=== PATIENT | female | born 1980 | race African-American/Black ===

== ENCOUNTER 2019-02-07 20:00 | Inpatient (IN) | payer OTHER ==
[~2019-02-07] VITALS: Ht 172.7 cm; Wt 102.1 kg
[2019-02-07 20:01] VITALS: BP 106/52
[2019-02-07 21:04] LABS: HEMATOCRIT 28.2 % (37.0-47.0); HEMOGLOBIN 9.1 gm/dL (12.0-15.0); MCH 26.6 pg (26.0-34.0); MCHC 32.3 g/dL (28.0-37.0); MCV 82.4 fL (80.0-100.0); PLATELET COUNT 395 thou/uL (150-400); RBC 3.43 mil/uL (4.20-5.00); RDW 17.5 % (10.5-14.5); WBC 11.2 thou/uL (4.0-11.0)
[2019-02-07 21:12] LABS: CALCIUM 8.7 mg/dL (8.5-10.1); CREATININE 1.1 mg/dL (0.6-1.0); POTASSIUM 3.9 mmol/L (3.5-5.1)
[2019-02-07 21:48] LABS: ABSOLUTE NEUTROPHILS 6.5 thou/uL (1.4-8.2)
[2019-02-07 21:49] LABS: ANISOCYTOSIS 1+; PLATELET ESTIMATE NORMAL
[2019-02-07 23:27] VITALS: BP 135/67
[2019-02-08 00:07] VITALS: BP 134/71
[2019-02-08] MEDS ORDERED: SINGULAIR 10 MG10 M1 PO (00:32)
[2019-02-08] MEDS ORDERED: VENTOLIN HFA 1818 GM INH (00:33)
[2019-02-08 00:55] VITALS: BP 123/70
[2019-02-08 03:00] VITALS: BP 112/68
--- NOTE | 2019-02-08 03:37 | NUR ---
PATIENTS CARE WAS ASSUMED AFTER ED TRANSFERED HER TO THE FLOOR IN FAIR CONDITION. THIS PATIENT CAME TO THE FLOOR WITH ALL HER CLOTHES ON. THIS PATIENT IS A PE COUCH AND FELL AND FRACTURED HER LEG. PATIENT IS NOW NPO SINCE MIDNIGHT SHE WILL HAVE SURGERY IN THE MORNING. HOURLY ROUNDING WAS DONE. THE BED IS IN A LOW AND LOCKED POSITION.
[2019-02-08 05:33] LABS: HEMATOCRIT 27.8 % (37.0-47.0); MCH 26.8 pg (26.0-34.0); MCHC 32.4 g/dL (28.0-37.0); MCV 82.7 fL (80.0-100.0); RBC 3.36 mil/uL (4.20-5.00); RDW 17.3 % (10.5-14.5); WBC 11.5 thou/uL (4.0-11.0)
[2019-02-08 05:39] LABS: CALCIUM 8.6 mg/dL (8.5-10.1); CREATININE 1.1 mg/dL (0.6-1.0); POTASSIUM 4.2 mmol/L (3.5-5.1)
[2019-02-08 08:57] VITALS: BP 108/60
[2019-02-08 11:01] LABS: MAGNESIUM 2.2 mg/dL (1.8-2.4)
[2019-02-08 13:19] VITALS: BP 126/70
--- NOTE | 2019-02-08 14:21 | NUR ---
ASSESSMENT-PT LIVES IN AN APT. PRIOR SHE WAS INDEPENDENT OF ADLS, AMBULATION AND WAS WORKING IN A DRS OFFICE. PT'S FRIEND AND MOTHER AT THE BEDSIDE. PLAN IS FOR PT TO HAVE SURGERY TOMORROW. PT HAS NO DME AND HAS NOT HAD ANY HH SERVICES IN THE PAST. FOLLOWING TO ASSIST WITH DC PLANNING.
[2019-02-08 19:06] VITALS: BP 120/75
[2019-02-08 20:05] LABS: URINE BILIRUBIN NEGATIVE (Negative); URINE BLOOD NEGATIVE (Negative); URINE CLARITY CLEAR; URINE COLOR YELLOW; URINE GLUCOSE-RANDOM* NEGATIVE (Negative); URINE KETONES NEGATIVE (Negative); URINE LEUKOCYTES-REFLEX TRACE (Negative); URINE NITRITE-REFLEX NEGATIVE (Negative); URINE PROTEIN (DIPSTICK) TRACE (Negative); URINE SPECIFIC GRAVITY 1.025 (1.005-1.035)
--- NOTE | 2019-02-09 01:15 | NUR ---
Assumed care of pt at 1900. Pt alert and oriented x4. Complaints for severe pain on right lower extremity. Not yet due for morphine IV. Broadcast Journalist on duty notified and onetime order for norco obtained. NPO after midnight. Will have surgery in the am. Immobilizer in place on right lower extremity. IVF infusing. Call light within reach. Will continue to monitor.
[2019-02-09 04:29] VITALS: BP 128/63
[2019-02-09 05:09] LABS: HEMATOCRIT 25.9 % (37.0-47.0); HEMOGLOBIN 8.4 gm/dL (12.0-15.0); MCH 26.9 pg (26.0-34.0); MCHC 32.5 g/dL (28.0-37.0); MCV 82.6 fL (80.0-100.0); PLATELET COUNT 350 thou/uL (150-400); RBC 3.14 mil/uL (4.20-5.00); RDW 17.1 % (10.5-14.5); WBC 12.1 thou/uL (4.0-11.0)
[2019-02-09 05:17] LABS: PROTIME 10.7 Seconds (9.3-11.4)
[2019-02-09 05:22] LABS: CALCIUM 8.7 mg/dL (8.5-10.1); CREATININE 0.9 mg/dL (0.6-1.0); MAGNESIUM 2.1 mg/dL (1.8-2.4); POTASSIUM 3.8 mmol/L (3.5-5.1)
[2019-02-09 06:18] LABS: ABSOLUTE NEUTROPHILS 6.2 thou/uL (1.4-8.2)
[2019-02-09 06:19] LABS: ANISOCYTOSIS 1+; PLATELET ESTIMATE NORMAL; POLYCHROMASIA 1+
[2019-02-09 07:20] VITALS: BP 124/64
--- NOTE | 2019-02-09 11:41 | HC ---
[facility] [place] [address] CONSULTATION Name: CASTILLO LE Room #: 418-P ADM IN M.R.#: [id number] Admission: 02/07/19 ������������������ Attend Phys: Jd Sewell MD Discharge: ������������������ Date of : 76 Report #: [id number] THIS REPORT FOR: //name// CC: Bebeto Sewell DATE OF SERVICE: 02/08/2019 CHIEF COMPLAINT: Left tibial plateau fracture. 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 She was running fracture site yesterday and stumbled awkwardly twisting the left knee. She had immediate popping sensation, followed by pain and inability to bear weight. She came to [facility] where x-rays confirm a badly comminuted and displaced left tibial plateau fracture. She has no other injuries. She states she has no other significant medical problems and is generally fit and healthy. PHYSICAL EXAMINATION: GENERAL: At the time of my evaluation, she is alert and oriented and in moderate discomfort due to left knee pain. She seems to be in no distress. LUNGS: Clear. CARDIOVASCULAR: Reveals a regular rate and rhythm. MUSCULOSKELETAL: The upper extremities reveal good range of motion without discomfort. The neck and back reveal normal contour and alignment, satisfactory range of motion without discomfort. The right lower extremity reveals good movement at the hip, knee and ankle without discomfort. The left lower extremity is quite uncomfortable of her knee, which is protected with a knee immobilizer brace. She has good movement of the foot and ankle with good strength in both dorsiflexion and plantar flexion. Vascular status appears to be normal. X-rays of the left knee reveal a badly comminuted fracture with a vertical fracture line extending through the mid tibia and extending medially. The medial one-half of the tibia is depressed about 1-2 inches. The lateral aspect seems to be intact. IMPRESSION: I have discussed this at length with the patient noting this is a rather severely comminuted and badly displaced fracture of the left tibial plateau involving significant deformity at the articular surfaces. I think surgical repair is most appropriate. We will press ahead either later today or tomorrow pending or scheduling. At the time of this dictation, [place] [address] CONSULTATION Name: CASTILLO LE Room #: 418-P [facility] IN M.R.#: [id number] Admission: 02/07/19 ������������������ Attend Phys: Jd Sewell MD Discharge: ������������������ Date of : 76 Report #: [id number] probably proceed tomorrow morning if OR availability is possible. The patient understands and wishes to proceed with surgery. ��������������������������������������������� <ELECTRONICALLY SIGNED> ���������������������������������������� By: Vishal Cristina MD ��������������������������������������������� 02/09/19 1141 [id number] Vishal Cristina MD /nt
--- NOTE | 2019-02-09 11:56 | NUR ---
ASSUMED CARE AT 0700, SHIFT ASSESSMENT DONE, VSS, NPO SINCE LAST NIGHT. REPORTED PAIN, PRN PAIN MED GIVEN. LEFT FOR SURGERY AT 1000. WILL CONTINUE TO ASSESS AND ASSIST WITH ADLs NEEDED.
[2019-02-09 11:59] VITALS: BP 120/73
[2019-02-09 16:00] VITALS: BP 132/61
--- NOTE | 2019-02-10 04:17 | NUR ---
ASSUMED PT CARE 1899. PT ALERT AND ORIENTED. REASSESSMENT COMPLETE. IV DRESSING C/D/I, NO SIGNS OF INFITLRATION. PT DENIES N/V. PT REPORTS PAIN, SEE EMAR. IMMOBILIZER IN PLACE TO LLE. PT CALL LIGHT WITHIN REACH, WILL CONTINUE POC UNTIL EOS.
[2019-02-10 04:57] LABS: HEMATOCRIT 24.4 % (37.0-47.0); HEMOGLOBIN 7.9 gm/dL (12.0-15.0)
[2019-02-10 05:38] VITALS: BP 113/63
--- NOTE | 2019-02-10 07:19 | O ---
[facility] [place] [address] OPERATIVE REPORT Name: CASTILLO LE Room #: 418-P ADM IN M.R.#: [id number] Admission: 02/07/19 ������������������ Attend Phys: Jd Sewell MD Discharge: ������������������ Date of : 78 Report #: [id number] THIS REPORT FOR: //name// CC: Bebeto Sewell DATE OF SERVICE: 02/09/2019 PREOPERATIVE DIAGNOSIS: Complex comminuted left tibial plateau fracture. POSTOPERATIVE DIAGNOSIS: Complex comminuted left tibial plateau fracture. PROCEDURE: Open reduction and internal fixation of left tibial plateau fracture. SURGEON: Vishal Cristina MD. INDICATIONS: This 38-year-old female fell awkwardly, twisting the left knee resulting in a severely comminuted and displaced fracture involving the proximal tibia. This involves a fracture in the inner spinous region extending distally and medially with several centimeters of depression involving the entire mid and medial aspect of the tibia. There is also some comminution extending posteriorly. The more lateral portion of the tibia remains intact and is well aligned with the fibula. The lateral cortex remains intact. We have discussed treatment options and elected to go ahead with surgical repair with reduction and medial buttress fixation plating. DESCRIPTION OF PROCEDURE: The patient was taken to the operating room where she was placed under general anesthesia. A block was also performed. The left knee and leg were meticulously prepped and draped. A thigh tourniquet was applied and inflated to 300 mmHg. An anterior medial skin incision was made extending from the left knee joint distally along the anterior medial tibia. This was extended to subcutaneous tissues to expose the bone and periosteum. There was a large displaced fracture extending along the anterior medial cortex. This was reduced essentially anatomically and held temporarily with a bone clamp. This fragment, which involved essentially the entire anterior medial tibia was also elevated bring this more proximally and in alignment with the lateral tibia. This resulted in essentially anatomic appearance of the joint surface when viewed on the AP view. The lateral view reveals some comminution and some posterior displacement still, however, overall alignment seems to be acceptable and I did not feel I could improve the reduction without undue soft tissue dissection and possible further injury. The reduction was held temporarily with clamps and then an 8-hole medial tibial buttress plate was applied. Locking and nonlocking screws were placed with 3 screws in the most proximal holes, which seemed to align and compress the joint surface defect nicely. More distally, there were six additional screws, which have reasonably good purchase in the [facility] [address] [place] [address] OPERATIVE REPORT Name: CASTILLO LE Room #: 418-P [facility] IN .R.#: [id number] Admission: 02/07/19 ������������������ Attend Phys: Jd Sewell MD Discharge: ������������������ Date of : 78 Report #: [id number] metaphyseal and upper diaphyseal bone. This results in essentially anatomic alignment in the AP view. The lateral view still reveals some posterior displacement in the metaphyseal region, but the joint surface appears to be anatomic. I did not feel further dissection or disruption of this fixation would be helpful and elected to accept this reduction. The tourniquet was then deflated. Good hemostasis was confirmed. A small arthrotomy in the joint had been made to visualize the joint surface confirming that I was back to essentially anatomic position. A moderate joint hematoma had been evacuated early in the case. At this point, a drain was placed lying along the plate and then the tip of the drain left in the joint. This was carefully protected as the wound was then closed in layers using 0 Monocryl for multiple layers bringing the subcutaneous tissues together nicely. The skin was then closed with skin kristopher. The drain was tested and found to be mobile and sliding slightly without any evidence of tethering. The skin was closed with skin kristopher. A sterile dressing was applied. The knee immobilizer brace was then reapplied holding the knee in neutral position. The patient was awakened and returned to recovery room in good condition. ��������������������������������������������� <ELECTRONICALLY SIGNED> ���������������������������������������� By: Vishal Cristina MD ��������������������������������������������� 02/10/19 0719 1304 [id number] Vishal Cristina MD /nt
[2019-02-10 07:35] VITALS: BP 116/67
--- NOTE | 2019-02-10 16:40 | NUR ---
ASSUMED CARE OF PT AT 0700. ASSESSMENT COMPLETED, CHARTED. A&O,X4. C/O LEFT LEG PAIN, PAIN MEDS GIVEN ORDERED. LEFT LEG DRESSED IN SURGICAL DRESSING, KELTON WRAP, AND IMMOBILIZER. HEMOVAC DRAIN REMOVED TODAY ORDERED, 50 ML SANGINOUS DRAINAGE NOTED. +2/+2 PULSES. LEFT LEG EDEMA NOTED. PT WORKED WITH P.T. TODAY, UP IN CHAIR AND WALKING WITH X1 ASSIST AND WALKER. WILL CONTINUE TO MONITOR UNTIL EOS.
[2019-02-10 16:57] VITALS: BP 112/54
[2019-02-10 19:15] VITALS: BP 114/58
[2019-02-10 21:45] VITALS: BP 123/68
--- NOTE | 2019-02-11 04:05 | NUR ---
PATIENT IS ALERT AND ORIENTED. PATIENT IS UP TIMES ONE TO TWO WITH WALKER AND GAIT BELT. PATIENT IS TOE TOUCH ON LT LEG IMMOBILIZER IN PLACE. PATIENT USES BSC. PATIENTS LBM WAS THE . PATIENT WAS GIVEN MIRALAX. PATIENT IS ROOM AIR. PATIENTS PAIN HAS BEEN STABLE. PATIENT IS SLEEPING IN CHAIR. PATIENT IS RESTING COMFORTABLY IN BED. WCM. PATIENT IS PROGRESSING TO GOALS.
[2019-02-11 05:05] VITALS: BP 110/56
[2019-02-11 05:30] LABS: HEMATOCRIT 22.3 % (37.0-47.0); HEMOGLOBIN 7.4 gm/dL (12.0-15.0); MCH 27.3 pg (26.0-34.0); MCHC 33.2 g/dL (28.0-37.0); MCV 82.4 fL (80.0-100.0); RBC 2.71 mil/uL (4.20-5.00); RDW 17.1 % (10.5-14.5); WBC 10.6 thou/uL (4.0-11.0)
[2019-02-11 05:53] LABS: CALCIUM 8.2 mg/dL (8.5-10.1); CREATININE 0.9 mg/dL (0.6-1.0); POTASSIUM 3.7 mmol/L (3.5-5.1)
[2019-02-11 07:10] VITALS: BP 101/57
[2019-02-11 16:00] VITALS: BP 116/55
--- NOTE | 2019-02-11 19:41 | NUR ---
ASSUMED CARE OF PT AT 0700. ASSESSMENT COMPLETED. A&O,X4. C/O LEFT LEG PAIN POST OP, PAIN MEDS GIVEN ORDERED. LEFT IMMOBILIZER IN PLACE. INCREASED SWELLING IN LEFT FOOT NOTED, ICE AND ELEVATION PROMOTED. NO BM NOTED SINCE SURGERY, MIRALAX GIVEN. FAMILY AT BEDSIDE. NO OTHER CHANGE IN STATUS.
[2019-02-12 03:50] VITALS: BP 111/64
--- NOTE | 2019-02-12 04:46 | NUR ---
ASSUMED PT CARE 1899. PT ALERT AND ORIENTED. REASSESMENT COMPLETE. VSS. PT DENIES N/V, REPORTS PAIN, SEE EMAR. SWELLING TO RLE- ICE APPLIED. IV DRESSING C/DI, NO SIGNS OF INFILTRATION. CALL LIGHT WITHIN REACH. FAMILY AT BEDSIDE. IMMOBILIZER TO LLE IN PLACE. WILL CONTINUE POC UNTIL EOS.
[2019-02-12 08:19] VITALS: BP 116/56
--- NOTE | 2019-02-12 14:48 | NUR ---
ASSUMED CARE OF PT AT 0700. ASSESSMENT COMPLETED. A&0,X4. C/O INCREASED LEG PAIN AND SWELLING, PHYSICIAN NOTIFIED. NEW PAIN MED ORDERS TODAY, PAIN MEDS GIVEN ORDERED. LEFT IMMOBILIZER IN PLACE, UP WITH ASSIST AND WALKER. NO BM SINCE SURGERY, SENNA AND MIRALAX GIVEN. MOTHER AT BEDSIDE. NO OTHER CHANGE IN STATUS. POSSIBLE D/C TOMORROW.
[2019-02-12 15:32] VITALS: BP 109/48
[2019-02-12 19:38] VITALS: BP 125/57
[2019-02-13 05:15] VITALS: BP 125/65
--- NOTE | 2019-02-13 05:23 | NUR ---
ASSUMED PT CARE 1899. PT ALERT AND ORIENTED. REASSESSMENT COMPLETE. VSS. PT DENIES N/V. REPORTS PAIN, SEE EMAR. MOTHER AT BEDSIDE. IV DRESSING C/D/I, NO SIGNS OF INFILTRATION. CALL LIGHT WITHIN REACH. WILL CONTINUE POC UNTIL EOS.
[2019-02-13 05:50] LABS: HEMOGLOBIN 7.5 gm/dL (12.0-15.0); MCH 26.8 pg (26.0-34.0); MCHC 32.7 g/dL (28.0-37.0); MCV 81.9 fL (80.0-100.0); RBC 2.81 mil/uL (4.20-5.00); RDW 17.2 % (10.5-14.5); WBC 10.4 thou/uL (4.0-11.0)
[2019-02-13 08:01] VITALS: BP 111/65
--- NOTE | 2019-02-13 10:57 | NUR ---
PT A&OX4, IV INTACT IN L AC. LLE WITH IMMOBILIZER, AMBULATES WITH ASSIST X1 AND WALKER TO BSC. TOLERATING PO WELL. WILL CONT POC.
--- NOTE | 2019-02-13 14:18 | NUR ---
FAXED REFERRAL TO [facility] WITH BECKY IN ADM, TO REVIEW. DCP TO FOLLOW.
--- NOTE | 2019-02-13 14:40 | NUR ---
S/W PT, HER MOM AND ANOTHER FAMILY MEMEBER AND THEY ARE INTERESTED IN RHOP. NOTIFIED DC POULTRY CUTTER. EXPLAINED PROCESS TO [facility] AND ASKED THEM TO LOOK AT SNF LIST TOO IN CASE ACUTE REHAB LEVEL OF CARE IS NOT APPROVED. THEY HAVE SNF LIST TO REVIEW.
[2019-02-13 17:12] VITALS: BP 120/57
[2019-02-13 19:01] VITALS: BP 112/63
[2019-02-14 03:56] VITALS: BP 93/51
--- NOTE | 2019-02-14 04:26 | NUR ---
ASSUMED PT CARE 1899. PT ALERT AND ORIENTED. REASSESSMENT COMPLETE. VSS. IV DRESSING C/D/I, NO SIGNS OF INFITLRATION. SWELLING TO LLE. ICE PACKS PROVIDED. PT REPORTS PAIN, SEE EMAR. PT DENIES N/V. PT CALLLIGHT WITHIN REACH, WILL CONTINUE POC UNTIL EOS.
[2019-02-14 09:08] VITALS: BP 92/40
--- NOTE | 2019-02-14 11:35 | NUR ---
Assess for length of stay. Left knee fracture s/p surgical intervention. Discharge planning in process. Tolerating meals. Corrected BMI is 35. Low nutrition risk
--- NOTE | 2019-02-14 12:25 | NUR ---
Following for d/c planning needs. Checked with [facility] liaison. She said they are still waiting for insurance authorization.
--- NOTE | 2019-02-14 15:25 | NUR ---
on-going assessment: CECILE WAS NOTIFIED BY THAT PER REHAB [facility] IS BEING DENIED BY INSURANCE FOR ACUTE REHAB. A PEER TO PEER CAN BE COMPLETED IF REQUESTED BY CALLING [phone] REF#[id number]. CECILE NOTIFIED ATTENDING AND SPOKE WITH PATIENT. SHE WOULD REALLY LIKE ATTENDING TO DO PEER TO PEER SHE REALLY WANTS ACUTE REHAB [facility] THEN HAVING TO GO TO A SNF. CECILE NOTIFIED ATTENDING WHO IS AGREEABLE TO COMPLETE THE PEER TO PEER. CECILE CALLED [phone] AND SPOKE WITH BART TO SCHEDULE THE PEER TO PEER. SHE STATES THEIR CAFE LEAD WILL CALL DR. MUSE WITHIN 24 HOURS TO COMPLETE THE PEER TO PEER (BY [phone]). CECILE NOTIFIED PATIENT.
[2019-02-14 15:50] VITALS: BP 106/54
--- NOTE | 2019-02-14 19:39 | NUR ---
ASSUMED CARE AT 0700, SHIFT ASSESSMENT DONE, MEDS GIVEN, VSS. REPORTED PAIN, PRN PAIN MEDS GIVEN PER eMAR. WORKED WITH PHYSICAL THERAPHY, SEE NOTES. DENIES ANY OTHER CONCERNS AT THIS TIME. IV FLUIIDS HAVE BEEN DISCONTINUED. WILL CONTINUE TO ASSESS AND ASSIST WITH ADLs NEEDED.
[2019-02-14 20:00] VITALS: BP 130/68
[2019-02-15 04:30] VITALS: BP 103/48
--- NOTE | 2019-02-15 05:08 | NUR ---
PT CONTINUE TO REQUEST PAIN MEDICINE WHEN IT IS TIME, EDUCATED TO TRY TO LENGHTEN THE INTERVAL BUT SHE SAYS PAIN STARTS RIGHT ON THE DOT WHEN IT IS DUE. UP WITH ASSIST TO THE BEDSIDE COMMODE, ON ROOM AIR LEFT LEG WITH KELTON WRAP AND VELCRO IMMOBILIZER, NO SOB NOTED, VOIDING, NO BM NOTED, ICE PACK NEEDED TO LEFT LEG, LEFT LEG SWOLLEN BUT NOT PITTING, USING CALL LIGHT APPROPRIATELY, GOOD APPETITE, SEVERAL SNACKS GIVEN LAST NOC, HOURLY ROUNDING, MONITORED.
[2019-02-15 08:50] VITALS: BP 116/58
--- NOTE | 2019-02-15 10:34 | NUR ---
Physician said that insurance upheld denial. Spoke with pt and her mother. They were given choices, and want pt to go to [facility]. Messaged media services coordinator at facility and asked conservation planner to fax referral. Will await return call re: bed availability and acceptance.
--- NOTE | 2019-02-15 11:48 | NUR ---
FAXED REFERRAL TO [facility] SPOKE WITH FRANCOISE IN ADM. SHE RECEIVED REFERRAL AND WILL REVIEW. DCP TO FOLLOW.
--- NOTE | 2019-02-15 12:40 | NUR ---
ASSUMED CARE AT 0700, SHIFT ASSESSMENT DONE, VSS. REPORTED PAIN, PRN PAIN MEDS GIVEN, SEE eMAR. WORKED WITH PHYSICAL THERAPHY. SITTING UP IN THE CHAIR THIS AFTERNOON. WILL CONTINUE TO ASSESS AND ASSIST WITH ADLs NEEDED.
[2019-02-15] MEDS ORDERED: NORCO 10-325 T1 EACH PO (15:17)
--- NOTE | 2019-02-15 16:01 | NUR ---
PT. DISCHARGING TODAY TO [facility] FAXED DC ORDERS/SUMMARY TO FACILITY SPOKE WITH EDUARDO IN ADM. SHE RECEIVED DC ORDERS AND ARRANGED TRANSPORT VIA [facility] FOR 1630. FAMILY NOTIFIED AT BEDSIDE AND UNIT NOTIFIED OF TRANSPORT TIME AND CHART COPY PER US. RN TO CALL REPORT TO [phone].
--- NOTE | 2019-02-15 17:27 | NUR ---
DISCHARGE ORDER RECEIVED. REPORT CALLED TO CHELLE OVER THE FACILITY. PERIPHEARL IV WAS TAKEN OUT. LEFT WITH TRANSPORTATION AT 1700.
== END 2019-02-15 18:37 | DRG 493 ==
LOC: ER 20:00 → EROBS 22:54 → 4E 22:54
PROVIDERS: Emergency Medicine; Hospitalist; Nurse Practitioner Family; Orthopaedic Surgery; ADMIT Internal Medicine
PROC: 0QSH04Z Reposition Left Tibia with Internal Fixation Device, Open Approach (ICD-10-PCS; principal; 2019-02-09)
DX: S82.142A Displaced bicondylar fracture of left tibia, initial encounter for closed fracture (principal); D62 Acute posthemorrhagic anemia; W18.30XA Fall on same level, unspecified, initial encounter; Y93.02 Activity, running; J45.909 Unspecified asthma, uncomplicated; D72.829 Elevated white blood cell count, unspecified; Y92.410 Unspecified street and highway as the place of occurrence of the external cause; Y99.8 Other external cause status; Z88.0 Allergy status to penicillin; Z88.1 Allergy status to other antibiotic agents; Z80.9 Family history of malignant neoplasm, unspecified
CPT/HCPCS: 10084; 50010; 50101; 50341; 50386; 51132; 51412; 55430; 56667; 57091; 57180; 62110; 62900; 64043; 65060; 70005

== ENCOUNTER 2019-03-02 15:19 | Inpatient (IN) | payer OTHER ==
[~2019-03-02] VITALS: Ht 172.7 cm; Wt 95.3 kg
[2019-03-02 15:19] VITALS: BP 112/61
[~2019-03-02 15:19] MED LIST: NORCO 10-325 T1 EACH PO; SINGULAIR 10 MG10 M1 PO; VENTOLIN HFA 1818 GM INH
[2019-03-02] MEDS ORDERED: APAP650 PO (15:34)
[2019-03-02] MEDS ORDERED: CYCLOBENZAPRINE5 MG PO (15:35)
[2019-03-02] MEDS ORDERED: BISACODYL SUPP10 MG RECTAL (15:36)
[2019-03-02] MEDS ORDERED: ERGOCAL2500 UNIT PO (15:37)
[2019-03-02] MEDS ORDERED: IRON325 PO (15:38)
[2019-03-02] MEDS ORDERED: GABAPENTIN 100100 MG PO (15:39)
[2019-03-02] MEDS ORDERED: GLYCOLAX119 GM PO (15:40)
[2019-03-02] MEDS ORDERED: LIDOCAINE PAIN1 EACH TOP (15:43)
[2019-03-02] MEDS ORDERED: OXYCONTIN10 M1 PO (15:44)
[2019-03-02] MEDS ORDERED: PERCOCET PO (15:44)
[2019-03-02] MEDS ORDERED: SENNA8.6 MG PO (15:45)
[2019-03-02] MEDS ORDERED: VITAMINC500 PO (15:45)
[2019-03-02 17:12] LABS: MCH 25.9 pg (26.0-34.0); PLATELET COUNT 419 thou/uL (150-400); RBC 3.08 mil/uL (4.20-5.00); RDW 18.2 % (10.5-14.5); WBC 10.5 thou/uL (4.0-11.0)
[2019-03-02 17:17] LABS: CALCIUM 9.5 mg/dL (8.5-10.1); CREATININE 1.1 mg/dL (0.6-1.0); POTASSIUM 3.8 mmol/L (3.5-5.1)
[2019-03-02 17:51] LABS: ABSOLUTE NEUTROPHILS 5.9 thou/uL (1.4-8.2)
[2019-03-02 17:52] LABS: ANISOCYTOSIS 2+; TARGET CELLS OCCASIONAL
[2019-03-02 18:14] LABS: APTT 30.6 Seconds (24.5-32.8); PROTIME 10.9 Seconds (9.3-11.4)
[2019-03-02] MEDS ORDERED: VENTOLIN HFA 1818 GM INH (19:01)
[2019-03-02] MEDS ORDERED: SINGULAIR 10 MG10 M1 PO (19:03)
[2019-03-02 19:48] VITALS: BP 116/71
[2019-03-02 20:30] VITALS: BP 117/62
[2019-03-02 20:50] VITALS: BP 102/56
[2019-03-02] MEDS ORDERED: VIT C-ROSE HIP500 MG PO (22:00)
[2019-03-02 23:27] VITALS: BP 120/62
[2019-03-03 04:00] VITALS: BP 106/61
[2019-03-03 05:12] LABS: HEMATOCRIT 22.4 % (37.0-47.0); HEMOGLOBIN 7.3 gm/dL (12.0-15.0); MCH 26.3 pg (26.0-34.0); MCHC 32.5 g/dL (28.0-37.0); MCV 80.9 fL (80.0-100.0); RBC 2.77 mil/uL (4.20-5.00); RDW 17.4 % (10.5-14.5); WBC 9.7 thou/uL (4.0-11.0)
[2019-03-03 05:20] LABS: CREATININE 0.9 mg/dL (0.6-1.0); POTASSIUM 4.1 mmol/L (3.5-5.1)
--- NOTE | 2019-03-03 06:31 | NUR ---
CELINA SAID OKAY TO HOLD HEPARIN BOLUS DUE TO APTT BEING TWO POINTS OFF TO PREVENT OVER SHOOTING NEXT APTT. FELECIA
--- NOTE | 2019-03-03 06:56 | NUR ---
PATIENT IS ALERT AND ORIENTED. PATIENTS PAIN IS CONTROLLED WITH MEDICATION. PATIENT IS ON HEPARIN DRIP. PATIENT IS ROOM AIR. PATIENT IS SINUS TACH ON TELE. PATIENT LBM IS THE 16TH. NEXT APTT IS 12 5-17-19. PATIENT IS NON WEIGHT BEARING ON LT FOOT FOR 11 WEEKS. PATIENT HAS BRACE TO LT LEG. INCISION WELL APPROXIMATED WITH STERI STRIPS. PATIENT IS RESTING COMFORTABLY IN BED. WCM.
[2019-03-03 08:00] VITALS: BP 103/61
[2019-03-03 08:51] LABS: % SATURATION 4 % (20-39); IRON 12 ug/dL (50-170); TIBC 294 ug/dL (250-450)
[2019-03-03 09:19] LABS: FOLIC ACID 16.9 ng/mL (8.6-58.9)
--- NOTE | 2019-03-03 10:29 | NUR ---
INITIAL ASSESSMENT: Pt evaluated for d/c planning needs. Reviewed chart and spoke with nurse, pt and family members at bedside. Pt is alert and oriented. Pt was hospitalized at [facility] and went to [facility] on February 15 for SNF. Pt was non-weight bearing on left leg. Pt said she is hopeful she will be able to return to [facility] on d/c from hospital. Spoke with adoption coordinator at facility and asked inventory control planner to fax referral. Prior to previous admission, pt was living in apartment with children and was independent with ADL's and employed outside the home. Will remain available to assist as needed.
--- NOTE | 2019-03-03 10:48 | NUR ---
DISCHARGE PLANNING. ANTICIPATED WEEKEND DISCHARGE. PATIENT ADMITTED TO HOSPITAL FROM [facility] UNIT. PATIENT REQUESTING TO RETURN TO [facility] AT DISCHARGE. PATIENT REFERRAL FAXED TO [facility]. CALL PLACED TO EDUARDO TO NOTIFY OF REFERRAL AND POSSIBLE WEEKEND DISCHARGE. PT AND OT TO SEE PATIENT TODAY. WILL FORWARD PT AND OT ASSESSMENTS TO EDUARDO ONCE AVAILABLE FOR INSURANCE AUTH PROCESS. FOLLOWING TO ASSIST WITH DISCHARGE.
--- NOTE | 2019-03-03 11:32 | NUR ---
care of pt assumed this am @ ~0700. pt noted to be in bed w/ x2 family members at bs. pt completed breakfast w/o n/v/d. pt on a heparin gtt at this time, new lab draw at noon to reassess aptt. pt co pain 2-03/27 to rt knee, noted binder undone dt dr. uribe at w/ dr. go. pt request binder be left open for a few hours for comfort and relief. noted previous sugery incision to lt knee x2 w/ steri strips intact, clean and dry w/ edges approximated well. pt noted to be walking in the hallway w/ walker and pt, asked if she need pain medication, she denied need at this time, but that she would contact me if needed in future. pt did not want to sit in chair post ambulation w/ pt, but rather preferred her bed.
[2019-03-03 12:07] VITALS: BP 106/64
[2019-03-03 16:23] VITALS: BP 112/60
[2019-03-03 20:57] VITALS: BP 104/62
[2019-03-04 04:37] VITALS: BP 94/53
[2019-03-04 06:34] LABS: HEMATOCRIT 22.4 % (37.0-47.0); HEMOGLOBIN 7.2 gm/dL (12.0-15.0); MCH 26.1 pg (26.0-34.0); MCHC 32.2 g/dL (28.0-37.0); MCV 80.9 fL (80.0-100.0); RBC 2.77 mil/uL (4.20-5.00); RDW 17.8 % (10.5-14.5); WBC 8.3 thou/uL (4.0-11.0)
[2019-03-04 06:44] LABS: CALCIUM 9.3 mg/dL (8.5-10.1); CREATININE 0.8 mg/dL (0.6-1.0); MAGNESIUM 2.4 mg/dL (1.8-2.4); POTASSIUM 4.1 mmol/L (3.5-5.1)
[2019-03-04 07:51] VITALS: BP 103/57
--- NOTE | 2019-03-04 08:21 | NUR ---
PT MAKING POOR PROGRESS TOWARDS GOALS. RATING LEFT KNEE PAIN AT 6-8/10 THROUGHOUT THE NIGHT. LORTAB AND MORPHINE GIVEN PER ORDERS. PAIN GOAL SET FOR 5/10. HEPARIN GTT PER ORDERS.
--- NOTE | 2019-03-04 09:11 | HC ---
[facility] [place] [address] CONSULTATION Name: CASTILLO LE Room #: 364-P ADM IN M.R.#: [id number] Admission: 03/02/19 ������������������ Attend Phys: Ludy Villarreal MD Discharge: ������������������ Date of : 76 Report #: [id number] THIS REPORT FOR: //name// CC: Vishal Villarreal REASON FOR CONSULTATION: Left DVT and pulmonary emboli, thought to be provoked. 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 The surgery was for a complex comminuted left tibial plateau fracture. The patient underwent open reduction and internal fixation of the left tibial plateau fracture. Note that this was on 02/07/2019. The patient was admitted on 03/02/2019. She has been rehabbing at about 3 to 4 days prior to admission. There was some swelling and tightness of her left leg. Here at [facility], an ultrasound showed an extensive DVT throughout the left common femoral vein, throughout the main femoral vein, and through the popliteal vein and into the posterior tibial vein and a CT with PE protocol, found pulmonary emboli within the right lower lobe segment on subsegmental pulmonary branches. The reason we are consulted here was her hemoglobin here on admit was 8 and then today 7.3. Note that back on February 07, it was 9.1, but when she left on the , it was 7.5. Back on 10/10/2018 at [facility], hemoglobin was 8.5 with an MCV of 79, platelets of 469 and normal differential. The patient was instructed to take iron 3 pills a day back then. It upset her stomach, so she stopped. She has been back on iron throughout the last month once a day. Her diet includes red meat, maybe 2-3 times per week. She does have some heartburn/reflux, does not take any acid blockers for it. Her menstrual cycle is 3 to 5 days, may be uses 2 to 3 pads per day and really does not pass any clots. She did not have any blood in her urine. She has not had prior diagnosis of anemia. None of her family members had had blood issues. REVIEW OF SYSTEMS: The patient denies any headache, any shortness of air or chest discomfort, any arm or leg swelling except for the left leg. No abdominal discomfort. No fevers, chills, sweats or weight change. Her weight is actually up 5 or 10 pounds this past year. FAMILY HISTORY: Mother had breast cancer and has genetic test in the past. Father had asthma. She has 2 brothers and 1 sister, alive and well. She has two children that are healthy. SOCIAL HISTORY: She works at [employer]. She reports her family physician is Meg Zacarias MD. Nonsmoker. Alcohol: Maybe 1 wine beverage once or twice per month. No street drugs. [facility] [address] [place] [address] CONSULTATION Name: CASTILLO LE Room #: 364-P ADM IN M.R.#: [id number] Admission: 03/02/19 ������������������ Attend Phys: Ludy Villarreal MD Discharge: ������������������ Date of : 76 Report #: [id number] MEDICATIONS: At this time in the hospital currently include: MiraLax 17 grams daily; iron sulfate t.i.d., my guess is she will not tolerate that; morphine p.r.n., gabapentin 200 q.i.d., cyclobenzaprine 5 mg q. 8 hours p.r.n., hydrocodone p.r.n., heparin on a drip. LABORATORY DATA: Here are notable for BUN 12, creatinine of 0.9. Iron drawn this morning of 12, TIBC 294, percent saturation 4. Protime 10.9 before the heparin, INR 1.0 before heparin, aPTT was normal before heparin. WBC currently 9.7, hemoglobin 7.3, MCV 80.9, RDW 17.4, platelets 387. Differential mostly normal with slight increase in percentage monocytes. Ferritin 93, folate 16.9, normal; vitamin B12 394, normal. UA back in early January was negative for blood. PHYSICAL EXAMINATION: GENERAL: The patient appears her stated age. VITAL SIGNS: Height is 5 feet 8 inches, which is 172.7 cm. Weight is 210 pounds or 95.26 kg. Blood pressure is 112/60, O2 is 100%, respirations 18, pulse 102, temperature 98.9. MOOD: She is alert and pleasant and quiet. NEUROLOGIC: Face is symmetrical, moving extremities except her left leg, which is sore. HEART: Regular rate. LUNGS: Clear anteriorly in upper back. LYMPHATICS: No enlarged lymph nodes in the supraclavicular, cervical, axillary or inguinal region. ABDOMEN: Soft, no masses. Slightly obese. EXTREMITIES: There is some edema in the left leg. DISCUSSION: Discussed with the patient this would appear to be a provoked clot. As such, we turn to balance of safety of a blood thinner to help dissolve this clot versus a danger of bleeding. I suspect that her anemia is iron deficiency, but most likely related to poor oral iron intake and menstrual loss. At this time, there is not that strongly indicates or suggests gastrointestinal blood loss that might be overtly dangerous with blood thinners. On the other hand, I think it is very prudent and I talked with Dr. Glaser this morning to do the IV heparin for perhaps 48 hours and if her hemoglobin is stable, we could consider switching to Lovenox and transition to Coumadin. These are reversible. If after the first year, her hemoglobin is improving and there is no overt bleeding, then we could consider switching to a novel oral agent if she and her other physicians would wish to. I would probably treat her for at least 6 months. I would consider ultrasound at 5 months before stopping the blood thinner. If she has bleeding, then we may need to stop the anticoagulation and consider an IVC filter and determine the source for bleeding. ASSESSMENT AND PLAN: 1. Provoked left lower extremity clot and pulmonary emboli, most likely related [address] [address] CONSULTATION Name: CASTILLO LE Room #: 364-P [facility] IN .R.#: [id number] Admission: 03/02/19 ������������������ Attend Phys: Ludy Villarreal MD Discharge: ������������������ Date of : 76 Report #: [id number] to recent surgery. As above, continue with heparin for probably 2 to 3 days, then switch to Lovenox while transitioning to Coumadin, which can be done as an outpatient. Prior to that, weekly hemoglobin for the next 2 months. If her hemoglobin is stable and leg is doing better, could consider switching to a novel oral anticoagulant. We would then in about month 5 to early 6 consider an ultrasound of the leg to see if the clot is dissolving. At that time, we could then decide whether to stop anticoagulation or continue it. 2. Anemia, iron deficiency, mostly related to less intake than loss in menstrual cycle. Continue monitoring for blood loss in stool etc. We will add Pepcid to help protect stomach. We continue iron for probably the next 6 months as much as tolerated, but also consider treating until her hemoglobin is up in normal range, at least for iron panel, which we may want to repeat in 2 or 4 months to see if it is back to normal range. 3. Recent leg tibial plateau fracture with open reduction and internal fixation. Defer rehabilitation issues to Dr. Cristina. 4. Seasonal allergies. Meds per others. Followup will be available. ��������������������������������������������� <ELECTRONICALLY SIGNED> ���������������������������������������� By: Quirino Gutierrez MD ��������������������������������������������� 03/04/19 0911 [id number] Quirino Gutierrez MD /nt
[2019-03-04 12:43] VITALS: BP 113/66
[2019-03-04 16:36] VITALS: BP 107/56
[2019-03-04 18:46] VITALS: BP 103/59
[2019-03-04 22:47] VITALS: BP 104/60; BP 112/66
[2019-03-05 03:30] VITALS: BP 104/60
[2019-03-05 07:26] LABS: HEMATOCRIT 25.5 % (37.0-47.0); HEMOGLOBIN 8.2 gm/dL (12.0-15.0); MCH 26.5 pg (26.0-34.0); MCHC 32.3 g/dL (28.0-37.0); MCV 81.9 fL (80.0-100.0); RBC 3.11 mil/uL (4.20-5.00); RDW 17.7 % (10.5-14.5); WBC 8.8 thou/uL (4.0-11.0)
--- NOTE | 2019-03-05 07:49 | NUR ---
PT MAKING SLOW PROGRESS TOWARDS GOALS. PT INITIALLY RATING PAIN 2/10. DID CHANGE PT PAIN LEVEL GOAL TO 2/10. DID REQUEST PAIN MEDICATION DESPITE BEING AT 2/10. PT DID EXPRESS DESIRE TO KEEP PAIN LEVEL DOWN. SEE CHARTING. PT DID HAVE SMALL BM LAST NIGHT AND THEN REFUSED NIGHT TIME DOSE OF MIRALAX. DID TAKE THE FOUR DULCOLAX TABLETS.
[2019-03-05 08:10] VITALS: BP 104/55
--- NOTE | 2019-03-05 09:46 | NUR ---
care of pt assumed this am @ ~0700. pt noted to be awake, talking on phone this am w/ her mother at . pt co pain to lt knee 04/26 this am, requested and medicated w/ iv pain medication. pt on heparin gtt, theraputic level obtained this early am, next aptt draw 03/06/19 @ 0400. no ss of bleeding noted this am. pt aware of our need for stool sample for occult. pt w/ a fair to good appetite for food and fluid, she customizes her meals. pt w/ lt knee immobilizer on but loosened at this time, new lidocaine patch applied to lt knee for pain control. pt verbalized that she received rbcs last night, but does not feel any different this am from the infusion.
[2019-03-05 16:46] VITALS: BP 115/68
[2019-03-05 20:10] VITALS: BP 120/66
--- NOTE | 2019-03-06 04:19 | NUR ---
PT RESTING IN BED. SR/ST ON MONITOR. PT REQUIRED DOSES OF PAIN MEDICATION. PT CONTINUES ON HEPARIN GTT WITH AM PTT TO BE DRAWN. FAMILY AT BEDSIDE.
[2019-03-06 05:22] VITALS: BP 97/55
[2019-03-06 07:16] VITALS: BP 102/63
[2019-03-06 07:51] LABS: HEMATOCRIT 26.8 % (37.0-47.0); HEMOGLOBIN 8.5 gm/dL (12.0-15.0); MCH 25.9 pg (26.0-34.0); MCHC 31.6 g/dL (28.0-37.0); MCV 81.8 fL (80.0-100.0); RBC 3.27 mil/uL (4.20-5.00); RDW 17.6 % (10.5-14.5); WBC 8.1 thou/uL (4.0-11.0)
--- NOTE | 2019-03-06 11:12 | 2DMMODE ---
[facility] [address] [place] [address] 2 D/M-MODE ECHOCARDIOGRAM Name: CASTILLO LE Room #: 364-P ADM IN M.R.#: [id number] ������������� Admission: 03/02/19 ������������� Attend Phys: Ludy Villarreal MD Discharge: ��� ������������� ��� Date of : 76 Date of Service: 03/06/19 1112 �� Report #: [id number] �������� ��������������������������������������������[id number] THIS REPORT FOR: //name// APPROVED REPORT Study performed: 03/06/2019 10:36:47 EXAM: Comprehensive 2D, Doppler, and color-flow Echocardiogram Patient Location: Bedside Room #: 364 Status: routine BSA: 2.09 HR: 85 bpm BP: 102/63 mmHg Rhythm: NSR Other Information Study Quality: Adequate Technically limited study due to inability to position patient/left knee immobilized. Indications recent PE and DVT 2D Dimensions RVDd: 37.85 mm IVSd: 8.75 (7-11mm) LVOT Diam: 20.48 (18-24mm) LVDd: 53.20 mm PWd: 8.12 (7-11mm) Ascending Ao: 24.39 (22-36mm) LVDs: 32.22 (25-40mm) Aortic Root: 28.95 mm IVC: 15.00 mm Volumes Left Atrial Volume (Systole) Single Plane 4CH: 30.91 mL Single Plane 2CH: 17.37 mL LA ESV Index: 14.00 mL/m2 Aortic Valve AoV Peak Yobany.: 1.17 m/s AO Peak Gr.: 5.43 mmHg LVOT Max P.81 mmHg LVOT Max V: 0.84 m/s AYAAN Vmax: 2.37 cm2 Mitral Valve E/A Ratio: 1.2 [facility] [place] [address] 2 D/M-MODE ECHOCARDIOGRAM Name: CASTILLO LE Room #: 364-[facility] IN ..#: [id number] ������������� Admission: 03/02/19 ������������� Attend Phys: Ludy Villarreal MD Discharge: ��� ������������� ��� Date of : 76 Date of Service: 03/06/19 1112 �� Report #: [id number] �������� ��������������������������������������������[id number] MV Decel. Time: 155.00 ms MV E Max Yobany.: 0.75 m/s MV A Yobany.: 0.63 m/s MV PHT: 44.95 ms IVRT: 96.89 ms Pulmonary Valve PV Peak Yobany.: 0.79 m/s PV Peak Gr.: 2.50 mmHg Pulmonary Vein P Vein S: 0.57 m/s P Vein A: 0.15 m/s P Vein D: 0.51 m/s P Vein A Dur.: 101.5 msec P Vein S/D Ratio: 1.12 Tricuspid Valve RAP Estimate: 5.00 mmHg Left Ventricle The left ventricle is normal size. There is normal left ventricular wall thickness. The left ventricular systolic function is normal. The left ventricular ejection fraction is within the normal range. LVEF is 50-55%. The left ventricular diastolic function is normal. Right Ventricle Right ventricle is at the upper limits of normal. The right ventricular systolic function is normal. Atria The left atrium size is normal. Right atrium is at the upper limits of normal. Aortic Valve The aortic valve is normal in structure. No aortic regurgitation is present. There is no aortic valvular stenosis. Mitral Valve The mitral valve is normal in structure. There is no mitral valve regurgitation noted. No evidence of mitral valve stenosis. Tricuspid Valve The tricuspid valve is normal in structure. Trace tricuspid regurgitation. Unable to assess PA pressure. Pulmonic Valve The pulmonary valve is normal in structure. Trace pulmonic regurgitation. [facility] [address] [place] [address] 2 D/M-MODE ECHOCARDIOGRAM Name: CASTILLO LE Room #: 364-P [facility] IN M.R.#: [id number] ������������� Admission: 03/02/19 ������������� Attend Phys: Ludy Villarreal MD Discharge: ��� ������������� ��� Date of : 76 Date of Service: 03/06/19 1112 �� Report #: [id number] �������� ��������������������������������������������[id number] Great Vessels The aortic root is normal in size. IVC is normal in size and collapses >50% with inspiration. Pericardium There is no pericardial effusion. <Conclusion> The left ventricle is normal size. LVEF is 50-55%. Right ventricle is at the upper limits of normal. The right ventricular systolic function is normal. Right atrium is at the upper limits of normal. The aortic valve is normal in structure. The mitral valve is normal in structure. The tricuspid valve is normal in structure. Trace tricuspid regurgitation. Unable to assess PA pressure. The pulmonary valve is normal in structure. Trace pulmonic regurgitation. There is no pericardial effusion. ��������������������������������������������� <ELECTRONICALLY SIGNED> ���������������������������������������� By: Farhat Benson MD ��������������������������������������������� 03/06/19 111 11 11 Farhat Benson MD /INF
[2019-03-06 11:27] VITALS: BP 110/64
--- NOTE | 2019-03-06 14:19 | NUR ---
Following for d/c planning needs. Physician said pt is not medically ready for d/c today. Notified [facility] admissions liaison. Will remain available to assist as notify facility when pt is ready for d/c.
[2019-03-06 16:27] VITALS: BP 101/62
[2019-03-06 19:26] VITALS: BP 113/64
--- NOTE | 2019-03-06 20:00 | NUR ---
care of pt assumed this am @ ~0700. pt co of "feeling whoozy" this am after consuming pain pills early am w/o food on her stomach. pt verbalized that her pain is has come under control over these last 48 hours. pt receives pain relieve from pain pills and uses iv pain medication for break through pain minimally. pt started on lovenox today (warfarin begun yesterday) and heparin gtt stopped this evening. pt aware of her chronic anemia, she has done research on what foods to consume to help increase her iron. pt up to the bthrm numerous times today w/ use of walker (toe touch wt bearing to lle) and x1 sba. pt w/ a good appetite for food and fluid. vss. pt is aware and looking forward to returning to rehab and then to home w/ her daughter.
--- NOTE | 2019-03-07 04:12 | NUR ---
SLEPT MOST OF SHIFT WITH SISTER AT BEDSIDE. WORKING ON GOALS AND PLAN OF CARE FOR NOC. ASSIST UP TO BATHROOM WITH WALKER AND GAIT BELT. PROGRESSING SLOWLY TOWARDS DISCHARGE GOALS. CONTINUE TO ASSES. PAIN MEDICATION GIVEN EVERY FOUR HOURS WITH NOTED RELIEF.
[2019-03-07 04:30] VITALS: BP 106/62
[2019-03-07 05:54] LABS: INR 1.2; PROTIME 12.3 Seconds (9.3-11.4)
[2019-03-07 08:10] VITALS: BP 110/55
[2019-03-07 09:56] LABS: HEMATOCRIT 27.4 % (37.0-47.0); HEMOGLOBIN 8.7 gm/dL (12.0-15.0); MCH 26.4 pg (26.0-34.0); MCHC 31.8 g/dL (28.0-37.0); RBC 3.3 mil/uL (4.20-5.00); RDW 18.7 % (10.5-14.5); WBC 7.4 thou/uL (4.0-11.0)
--- NOTE | 2019-03-07 11:46 | NUR ---
Discharge Planning: Sent updates on patient to [facility], and notified admissions of incoming updates. Patient likely to discharge from hospital tomorrow.
[2019-03-07 12:18] VITALS: BP 115/60
--- NOTE | 2019-03-07 14:03 | NUR ---
TIANA reviewed chart and spoke with nursing and attending physician. Pt will have last iron infusion tomorrow and should be medically stable for discharge back to [facility] tomorrow pending insurance authorization. TIANA met with pt at bedside to provide update and discuss discharge plan. Pt is aware and agreeable with plan for discharge back to [facility] when insurance auth obtained. discharge planner faxed updates to [facility] for review. TIANA updated massage coordinator at [facility], to request auth to be requested for tomorrow. TIANA is following to assist as needed with discharge planning.
--- NOTE | 2019-03-07 16:30 | NUR ---
Assumed care of patient at 0700. Vitals have been stable. Patient alert and oriented x4, pleasant. Complaints of pain to left leg / knee. Controlled today with PRN [place]. Has not required any meds IV or any Flexeril this shift. Fall precautions in place; patient calls appropriately. Up with one assist, gait belt and walker. Toe touch weight bearing to left extremity and immobilizer in place. Patient uses ice pack for pain control, as well as Lidocaine patch. Family at bedside throughout this shift. Plan to discharge to rehab tomorrow after last IV iron dose given. Progressing towards POC. Will continue to monitor.
[2019-03-07 16:36] VITALS: BP 120/55
[2019-03-07 19:14] VITALS: BP 105/59
[2019-03-08 03:26] VITALS: BP 106/58
[2019-03-08 05:51] LABS: HEMATOCRIT 27.6 % (37.0-47.0); HEMOGLOBIN 9.1 gm/dL (12.0-15.0); MCHC 32.9 g/dL (28.0-37.0); MCV 82.2 fL (80.0-100.0); RBC 3.35 mil/uL (4.20-5.00); RDW 18.4 % (10.5-14.5); WBC 6.4 thou/uL (4.0-11.0)
[2019-03-08 06:04] LABS: INR 1.5; PROTIME 15.2 Seconds (9.3-11.4)
--- NOTE | 2019-03-08 07:51 | NUR ---
Medicated for pain at HS and again this am with good relief. She slept well during the night. Up with assist to bathroom using walker.Bed alarm on and calls appropriately. Left knee incision well approximated , lillian lux'd per pt. request. Hoping to get discharge soon. Making progress towards care plan goals.
[2019-03-08 08:24] VITALS: BP 97/54
--- NOTE | 2019-03-08 10:25 | NUR ---
DISCHARGE NOTE: TIANA reviewed chart and spoke with nursing. Pt is currently receiving her last IV iron infusion. TIANA notified that [facility] has received insurance authorization and can accept pt today. Wheelchair van transportation scheduled for 1600 per SNF's arrangements. TIANA notified attending physician and MULCHER OPERATOR to request discharge orders/summary. meeting planner to fax when available. Chart copy ordered. Nursing to call report prior to discharge. No additional SW needs identified at this time, but is available to assist should needs arise. [facility]--
--- NOTE | 2019-03-08 10:27 | NUR ---
Discharge Planning: Patient will discharge today to [facility], they obtained authorization and will pickup at 4pm today. Chart copy ordered and unit notified. Elvie Segovia (Case mgt sw) will text doctor to put orders in for the patient.
[2019-03-08] MEDS ORDERED: ENOXAPARIN100 MG/11 SUBQ (10:29)
[2019-03-08] MEDS ORDERED: COUMADIN 5 MG TA5 M1 PO (10:29)
[2019-03-08] MEDS ORDERED: NORCO 5-325 TA1 EACH PO (10:33)
[2019-03-08] MEDS ORDERED: VITAMIN B122500 MCG PO (10:38)
[2019-03-08 11:36] VITALS: BP 110/55
--- NOTE | 2019-03-08 13:13 | NUR ---
ASSUMED CARE OF PT AT 0700. PT IS A&Ox4. PATIENT DENIES PAIN. PT DENIES BEING SOB. REPORTS SORENESS IN LLE AND TINGLING AROUND INCISION. PT'S AFFECT IS FLAT BUT CORDIAL. PT'S PRIMARY CONCERN IS TO FIND OUT D/C PLAN. PER CM, PT IS TO DC THIS AFTERNOON TO FACILITY. PT IS PROGRESSING TOWARD POC GOALS. WILL CONTINUE TO MONITOR AND ASSESS.
--- NOTE | 2019-03-08 16:34 | NUR ---
PT DC'D TO FACILITY VIA MEDICAL TRANSPORT. IV AND TELEMETRY DC'D. BELONGINGS GATHERED. REPORT CALLED TO BETH AT [place]. PT LEFT UNIT VIA WHEELCHAIR WITH TRANSPORT.
== END 2019-03-08 16:38 | DRG 175 ==
LOC: ER 15:19 → 3W 19:06 → EROBS 19:06 → 3W 20:35
PROVIDERS: Internal Medicine; Student in an Organized Health Care Education/Training Program; ADMIT Internal Medicine
PROC: 30233N1 Transfusion of Nonautologous Red Blood Cells into Peripheral Vein, Percutaneous Approach (ICD-10-PCS; principal; 2019-03-04)
DX: I26.99 Other pulmonary embolism without acute cor pulmonale (principal); J96.01 Acute respiratory failure with hypoxia; I82.412 Acute embolism and thrombosis of left femoral vein; I82.432 Acute embolism and thrombosis of left popliteal vein; I82.442 Acute embolism and thrombosis of left tibial vein; J45.909 Unspecified asthma, uncomplicated; K21.9 Gastro-esophageal reflux disease without esophagitis; K59.00 Constipation, unspecified; J30.2 Other seasonal allergic rhinitis; D50.9 Iron deficiency anemia, unspecified; Z87.81 Personal history of (healed) traumatic fracture; Z79.899 Other long term (current) drug therapy; Z88.0 Allergy status to penicillin; Z88.1 Allergy status to other antibiotic agents; Z80.3 Family history of malignant neoplasm of breast; Z82.5 Family history of asthma and other chronic lower respiratory diseases
CPT/HCPCS: 10879

== ENCOUNTER 2021-05-08 01:56 | Emergency (ER) | payer OTHER ==
[~2021-05-08] VITALS: Ht 170.2 cm; Wt 96.6 kg
[~2021-05-08 01:56] MED LIST changes: +APAP650 PO; +BISACODYL SUPP10 MG RECTAL; +COUMADIN 5 MG TA5 M1 PO; +CYCLOBENZAPRINE5 MG PO; +ENOXAPARIN100 MG/11 SUBQ; +ERGOCAL2500 UNIT PO; +GABAPENTIN 100100 MG PO; +GLYCOLAX119 GM PO; +IRON325 PO; +LIDOCAINE PAIN1 EACH TOP; +NORCO 5-325 TA1 EACH PO; +OXYCONTIN10 M1 PO; +PERCOCET PO; +SENNA8.6 MG PO; +VIT C-ROSE HIP500 MG PO; +VITAMIN B122500 MCG PO; +VITAMINC500 PO
[2021-05-08 03:18] LABS: HEMATOCRIT 35.2 % (37.0-47.0); MCH 30.4 pg (26.0-34.0); MCHC 33.9 g/dL (28.0-37.0); MCV 89.7 fL (80.0-100.0); PLATELET COUNT 312 thou/uL (150-400); RBC 3.93 mil/uL (4.20-5.00); RDW 29.1 % (10.5-14.5); WBC 12.3 thou/uL (4.0-11.0)
[2021-05-08 03:29] LABS: CREATININE 1.3 mg/dL (0.6-1.0); POTASSIUM 3.8 mmol/L (3.5-5.1)
[2021-05-08 03:52] LABS: URINE BILIRUBIN 2+ (Negative); URINE BLOOD 3+ (Negative); URINE CLARITY CLEAR; URINE COLOR RED; URINE GLUCOSE-RANDOM* NEGATIVE (Negative); URINE KETONES 1+ (Negative); URINE PROTEIN (DIPSTICK) 3+ (Negative); URINE SPECIFIC GRAVITY 1.015 (1.005-1.035)
[2021-05-08 03:53] LABS: URINE LEUKOCYTES-REFLEX 2+ (Negative); URINE NITRITE-REFLEX POSITIVE (Negative)
[2021-05-08 04:03] LABS: CASTS None Seen /LPF (None Seen); CRYSTALS None Seen /LPF (None Seen); MUCUS 4-6 Moderate strn/LPF (None Seen); SQUAMOUS 4-10 Moderate /LPF (0-3); URINE RBC >20 Many /HPF (NONE SEEN); WBC CLUMPS Few (None Seen)
[2021-05-08 05:22] LABS: ANISOCYTOSIS 3+; PLATELET ESTIMATE NORMAL; POIKILOCYTOSIS 2+; SCHISTOCYTES 1+
[2021-05-08] MEDS ORDERED: CEFPODOXIME PR200 M1 PO (05:47)
[2021-05-08 06:08] VITALS: BP 95/53
== END 2021-05-08 06:13 | disposition home or self-care (01) ==
LOC: ER 01:56
PROVIDERS: Emergency Medicine
DX: N12 Tubulo-interstitial nephritis, not specified as acute or chronic (principal); Z20.822 Contact with and (suspected) exposure to COVID-19; J45.909 Unspecified asthma, uncomplicated; Z86.2 Personal history of diseases of the blood and blood-forming organs and certain disorders involving the immune mechanism; Z98.51 Tubal ligation status; Z98.890 Other specified postprocedural states; Z88.1 Allergy status to other antibiotic agents; Z88.0 Allergy status to penicillin